=== PATIENT | female | born 1970 | race Caucasian/White ===

== ENCOUNTER 2018-04-13 07:10 | Day surgery (SDC) | payer BC ==
[2018-04-09 09:04] LABS: Absolute Lymphocytes (CBC) 1.2 K/uL (0.7-4.9); Absolute Monocytes 0.4 K/uL (0.1-1.3); Absolute Neutrophil 6.1 K/uL (1.8-8.0); Basophils % 0.5 % (0-1.3); Eosinophils % 1.4 % (0-4.4); Hematocrit 39.3 % (36.0-45.0); Lymphocytes % 15.5 % (15.3-44.8); MCH 33.6 pg (27.0-35.0); MCV 100.9 fL (80-100); MPV 8.1 fL (7.6-11.3); Monocytes % 4.8 % (3.3-12.3)
[2018-04-09 09:23] LABS: Potassium 3.3 mmol/L (3.5-5.1)
--- NOTE | 2018-04-09 10:41 | RAD REPORT ---
EXAM DESCRIPTION: RAD - Chest Pa And Lat (2 Views) - 04/09/2018 8:43 am CLINICAL HISTORY: Preop chest, pending left subclavian port removal COMPARISON: March 2017 portable chest TECHNIQUE: PA and lateral views of the chest were obtained. FINDINGS: The lungs are clear. Surgical clips are present right axilla. Decreased soft tissue volum e over the right chest presumed to be postsurgical change. Heart size is normal and central vasculatu re is within normal limits. No pleural effusion or pneumothorax seen. No acute bony finding noted. No aortic abnormality. IMPRESSION: No acute cardiopulmonary process.
--- NOTE | 2018-04-10 07:10 | EKG ---
Test Date: 2018-04-09 Test Time: 08:28:38 Mining Analyst: SHEY MEASUREMENT RESULTS: Intervals: Rate: 114 [place]: 150 QRSD: 82 QT: 324 QTc: 446 [facility]: P: 52 [place]: 150 QRS: 63 T: 31 INTERPRETIVE STATEMENTS: Sinus tachycardia Possible Left atrial enlargement Borderline ECG Compared to ECG 03/28/2017 11:07:17 No significant changes Electronically Signed On 04-10-18 07:07:26 PRIMING MACHINE OPERATOR by Inder Roberts
[2018-04-13] MEDS ORDERED: CEFAZOLIN/SWI 1gm 1 GM/10 ML SYR ONE (07:43)
[2018-04-13] MEDS ORDERED: Ringers Lactate 1,000 ML IV ONE (07:43)
[2018-04-13] MEDS ORDERED: FENTANYL CITR 100 MCG/2 ML ONE (08:31)
[2018-04-13] MEDS ORDERED: PROPOFOL 200 MG/20 ML VIAL IV ONE (08:31)
[2018-04-13] MEDS ORDERED: MIDAZOLAM HCL 2 MG/2 ML INJ ONE (08:31)
[2018-04-13] MEDS ORDERED: LIDOCAINE 2% MPF 5 ML VIAL ONE (08:31)
[2018-04-13] MEDS ORDERED: ONDANSETRON HCL 40 MG/20 ML VIAL ONE (08:32)
[2018-04-13] MEDS ORDERED: KETOROLAC 30 MG/ML INJ ONE (09:11)
--- NOTE | 2018-04-13 09:12 | P.BOP ---
Preoperative diagnosis: breast cancer Postoperative diagnosis: same Primary procedure: Removal of portacath Estimated blood loss: <10cc Specimen: intact portacath Anesthesia: General Complications: None Transferred to: Recovery Room Condition: Good
--- NOTE | 2018-04-13 21:07 | OP ---
Date of Procedure: 04/13/2018 Surgeon: Domenic eSxton MD Preoperative Diagnosis: Breast cancer. Postoperative Diagnosis: Breast cancer. Procedure: Removal of Port-A-Cath. Anesthesia: General plus local. Indications: This is the case of a 47-year-old patient, who just finished chemo, needed the Port-A-C ath removed. The benefits, alternatives, and risks of Port-A-Cath removal were fully explained, whic h include but are not limited to infection, bleeding, damage to adjacent structures, anesthesia compl ication, PE, DVTs, ID, and even . She also understands this may not relieve any symptoms. She might need more than one surgical intervention. She was advised once again the importance of followi ng up with the oncologist for the next several years as a followup for her breast cancer. She unders tood, signed the consent. Description Of Procedure: The patient was brought to the operating room, placed in the supine positi on. Anesthesia was done without complication. A time-out was called. Her chest was prepped and ta ped in a sterile fashion. Previous incision was opened. Incision was carried down to subcutaneous t issue. Port-A-Cath was identified, removed from the subcutaneous tissue, and then carefully pulled o ut without resistance. Pressure was applied at the insertion point. The Port-A-Cath came out intact with the catheter intact, was sent for identification. The area was irrigated. After applying pres sure for 15 minutes, we saw no bleeding. A 3-0 chromic was used to close the subcutaneous incision a nd also subcuticular closure with Steri-Strips on top. Sponge count and instrument counts were corre ct. The patient tolerated the procedure well. The patient was sent to recovery room in stable condition. KEYLA/IVON Voice ID: [id number] Report ID: [id number]
--- NOTE | 2018-04-13 21:13 | DS ---
Date of Discharge: 04/13/2018 Diagnosis: Breast cancer. Procedure: Removal of Port-A-Cath. Disposition: To home. Activity: As tolerated. No heavy lifting. Followup: Follow up in my office in 1 week. Call for appointment on [phone]. Keep area dry for 48 hours and then may shower. Keep Steri-Strips intact. Medications: See orders. KEYLA/IVON Voice ID: [id number] Report ID: [id number]
== END 2018-04-13 10:25 | disposition home or self-care (01) ==
LOC: OR 07:10
PROVIDERS: ATTEND Surgery
PROC: 0JPT0WZ Removal of Totally Implantable Vascular Access Device from Trunk Subcutaneous Tissue and Fascia, Open Approach (ICD-10-PCS; principal; 2018-04-13 08:30)
DX: Z45.2 Encounter for adjustment and management of vascular access device (principal); C50.911 Malignant neoplasm of unspecified site of right female breast; I10 Essential (primary) hypertension; F31.9 Bipolar disorder, unspecified; Z83.3 Family history of diabetes mellitus; Z82.49 Family history of ischemic heart disease and other diseases of the circulatory system
CPT/HCPCS: 36415; 71046; 80048; 85025; 88300; 93005; J0690; J2250; J2405; J2704; J3010

== ENCOUNTER 2018-11-08 02:03 | Emergency (ER) | payer BC ==
[2018-11-08] MEDS ORDERED: LORAZEPAM 1 MG TABLET ONE (02:29)
[2018-11-08] MEDS ORDERED: METOPROLOL TAR 25 MG TAB ONE (02:32)
--- NOTE | 2018-11-08 03:44 | EDPHYS ---
Physician Documentation [facility] Name: Aubrie Fink Age: 47 yrs Sex: Female : 1970 Arrival Date: 11/08/2018 Time: 02:08 Bed 14 Private MD: ED Physician Asif Sahu HPI: 11/08 03:11 This 47 yrs old Female presents to ER via EMS with complaints of Anxiety. ps1 03:11 patient was at work and drank 5 hour energy and 7 hour energy drink and took an ps1 albuterol and was BIBEMS for palpitations and anxiety. Patient didn't realize that the combination of caffeine supplements and albuterol would cause her HR to increase. Additionally was concerned about her BP. Did not take her Lisinopril today. STITCHING MACHINE OPERATOR: 02:15 LMP N/A - ea Historical: - Allergies: 02:15 "oxy"; ea - Home Meds: 02:15 Lisinopril Oral [Active]; Albuterol Oral [Active]; tamoxifen oral oral [Active]; ea - PMHx: 02:15 Asthma; Hypertension; breast cancer; ea - Immunization history:: Adult Immunizations up to date. - Social history:: Smoking status: Patient/guardian denies using tobacco. - Ebola Screening: : No symptoms or risks identified at this time. ROS: 03:11 Constitutional: Negative for fever, chills, and weight loss, Eyes: Negative for injury, ps1 pain, redness, and discharge, ENT: Negative for injury, pain, and discharge, Respiratory: Negative for shortness of breath, cough, wheezing, and pleuritic chest pain, Abdomen/GI: Negative for abdominal pain, nausea, vomiting, diarrhea, and constipation, Back: Negative for injury and pain, MS/Extremity: Negative for injury and deformity, Skin: Negative for injury, rash, and discoloration. 03:11 Cardiovascular: Positive for palpitations. 03:11 Psych: Positive for anxiety. Exam: 03:11 Constitutional: This is a well developed, well nourished patient who is awake, alert, ps1 and in no acute distress. Head/Face: Normocephalic, atraumatic. Eyes: Pupils equal round and reactive to light, extra-ocular motions intact. Lids and lashes normal. Conjunctiva and sclera are non-icteric and not injected. Chest/axilla: Normal chest wall appearance and motion. Nontender with no deformity. No lesions are appreciated. Respiratory: Lungs have equal breath sounds bilaterally, clear to auscultation and percussion. No rales, rhonchi or wheezes noted. No increased work of breathing, no retractions or nasal flaring. Abdomen/GI: Soft, non-tender, with normal bowel sounds. No distension or tympany. No guarding or rebound. No evidence of tenderness throughout. Back: No spinal tenderness. No costovertebral tenderness. Full range of motion. Skin: Warm, dry with normal turgor. Normal color with no rashes, no lesions, and no evidence of cellulitis. MS/ Extremity: Pulses equal, no cyanosis. Neurovascular intact. Full, normal range of motion. Neuro: Awake and alert, GCS 15, oriented to person, place, time, and situation. Cranial nerves II-XII grossly intact. Sensory grossly intact. 03:11 Cardiovascular: Rate: tachycardic, Rhythm: regular, Pulses: no pulse deficits are appreciated. 03:11 Psych: Behavior/mood is anxious, Affect is animated, Oriented to person, place, time, Patient has no thoughts/intents to harm self or others. Judgement / Insight is normal. Vital Signs: 02:15 BP 163 / 107; Pulse 124; Resp 18; Temp 98.4; Pulse Ox 100% ; Weight 73.94 kg; Height 5 ea ft. 3 in. (160.02 cm); 03:20 BP 148 / 54; Pulse 105; Resp 17; Pulse Ox 99% on R/A; rr5 03:46 BP 138 / 83; Pulse 95; Resp 17; Pulse Ox 99% on R/A; rr5 04:00 BP 131 / 85; Pulse 98; Resp 16; Temp 97.6; Pulse Ox 99% on R/A; rr5 02:15 Body Mass Index 28.87 (73.94 kg, 160.02 cm) ea MDM: 02:37 Patient medically screened. ps1 03:42 Data reviewed: vital signs, nurses notes, and as a result, I will discharge patient. ps1 Response to treatment: the patient's symptoms have resolved after treatment. Administered Medications: 02:15 Drug: Ativan 1 mg Route: PO; rr5 03:20 Follow up: Response: No adverse reaction rr5 02:17 Drug: Metoprolol 25 mg Route: PO; rr5 03:20 Follow up: Response: No adverse reaction rr5 Disposition: 11/08/18 03:43 Discharged to Home. Impression: Palpitations, Anxiety disorder due to known physiological condition. - Condition is Stable. - Discharge Instructions: Palpitations, Panic Attacks, Eenl-my-Jibr. - Medication Reconciliation Form, Thank You Letter, Antibiotic Education, Prescription Opioid Use form. - Follow up: Private Physician; When: As needed; Reason: Recheck today's complaints, Continuance of care, Re-evaluation by your physician. Follow up: Emergency Department; When: As needed; Reason: Worsening of condition. - Problem is new. - Symptoms are resolved. Signatures: Ashli Alvarado RN RN ea Asif Sahu MD MD ps1 Pawel Gore RN RN rr5 Corrections: (The following items were deleted from the chart) 04:04 03:43 11/08/2018 03:43 Discharged to Home. Impression: Palpitations; Anxiety disorder rr5 due to known physiological condition. Condition is Stable. Forms are Medication Reconciliation Form, Thank You Letter, Antibiotic Education, Prescription Opioid Use. Follow up: Private Physician; When: As needed; Reason: Recheck today's complaints, Continuance of care, Re-evaluation by your physician. Follow up: Emergency Department; When: As needed; Reason: Worsening of condition. Problem is new. Symptoms are resolved. ps1
--- NOTE | 2018-11-08 03:44 | ER ---
Nurse's Notes [facility] Name: Aubrie Fink Age: 47 yrs Sex: Female : 1970 Arrival Date: 11/08/2018 Time: 02:08 Bed 14 Private MD: Diagnosis: Palpitations;Anxiety disorder due to known physiological condition Presentation: 11/08 02:09 Presenting complaint: Patient states: Pt reports she drank a 5 hour energy and took ea albuterol last night, pt complaining of anxiousness. states "I feel really anxious and hyper". Transition of care: patient was not received from another setting of care. Onset of symptoms was November 08, 2018. Risk Assessment: Do you want to hurt yourself or someone else? Patient reports no desire to harm self or others. Initial Sepsis Screen: Does the patient meet any 2 criteria? HR > 90 bpm. Yes Does the patient have a suspected source of infection? No. Patient's initial sepsis screen is negative. Care prior to arrival: None. 02:09 Method Of Arrival: EMS: [facility] ea 02:09 Acuity: EDDIE 4 ea CARE TRANSITION MGR: 02:15 LMP N/A - ea Historical: - Allergies: 02:15 "oxy"; ea - Home Meds: 02:15 Lisinopril Oral [Active]; Albuterol Oral [Active]; tamoxifen oral oral [Active]; ea - PMHx: 02:15 Asthma; Hypertension; breast cancer; ea - Immunization history:: Adult Immunizations up to date. - Social history:: Smoking status: Patient/guardian denies using tobacco. - Ebola Screening: : No symptoms or risks identified at this time. Screenin:11 Abuse screen: Denies threats or abuse. Nutritional screening: No deficits noted. ea Tuberculosis screening: No symptoms or risk factors identified. Fall Risk None identified. Assessment: 02:17 General: Appears in no apparent distress. Behavior is anxious, restless. Pain: Denies ea pain. Neuro: Level of Consciousness is awake, alert, obeys commands, Oriented to person, place, time, situation. Cardiovascular: Patient's skin is warm and dry. Respiratory: Airway is patent Respiratory effort is even, unlabored, Respiratory pattern is regular, symmetrical. GI: No signs and/or symptoms were reported involving the gastrointestinal system. Derm: Skin is pink, warm \\T\\ dry. 03:10 Reassessment: Patient appears in no apparent distress at this time. Patient is alert, rr5 oriented x 3, equal unlabored respirations, skin warm/dry/pink. i feel much calmer now. Patient states feeling better. Patient states symptoms have improved. 04:00 Reassessment: Patient appears in no apparent distress at this time. Patient is alert, rr5 oriented x 3, equal unlabored respirations, skin warm/dry/pink. discharge instruction given and explained without complaints made. accompanied by family member. Patient denies pain at this time. Patient states feeling better. Patient states symptoms have improved. 04:00 General: Appears in no apparent distress. comfortable, Behavior is calm, cooperative, rr5 appropriate for age. Vital Signs: 02:15 BP 163 / 107; Pulse 124; Resp 18; Temp 98.4; Pulse Ox 100% ; Weight 73.94 kg; Height 5 ea ft. 3 in. (160.02 cm); 03:20 BP 148 / 54; Pulse 105; Resp 17; Pulse Ox 99% on R/A; rr5 03:46 BP 138 / 83; Pulse 95; Resp 17; Pulse Ox 99% on R/A; rr5 04:00 BP 131 / 85; Pulse 98; Resp 16; Temp 97.6; Pulse Ox 99% on R/A; rr5 02:15 Body Mass Index 28.87 (73.94 kg, 160.02 cm) ea ED Course: 02:08 Patient arrived in ED. ea 02:11 Triage completed. ea 02:12 Asif Sahu MD is Attending Physician. ps1 02:12 Patient has correct armband on for positive identification. Bed in low position. Call ea light in reach. 02:12 Arm band placed on right wrist. Patient placed in an exam room, on a stretcher, on ea pulse oximetry. 02:15 nurse monitoring on. Pulse ox on. NIBP on. rr5 03:31 Ashli Alvarado, BALBINA is Primary Nurse. ea 04:04 No provider procedures requiring assistance completed. Patient did not have IV access rr5 during this emergency room visit. Administered Medications: 02:15 Drug: Ativan 1 mg Route: PO; rr5 03:20 Follow up: Response: No adverse reaction rr5 02:17 Drug: Metoprolol 25 mg Route: PO; rr5 03:20 Follow up: Response: No adverse reaction rr5 Outcome: 03:43 Discharge ordered by . ps1 04:04 Discharged to home ambulatory, with family. rr5 04:04 Condition: stable 04:04 Discharge instructions given to patient, family, Instructed on discharge instructions, follow up and referral plans. Demonstrated understanding of instructions, follow-up care. 04:04 Patient left the ED. rr5 Signatures: Ashli Alvarado RN Asif Chakraborty ea, MD MD ps1 Pawel Gore RN RN rr5
== END 2018-11-08 04:04 | disposition home or self-care (01) ==
LOC: ER 02:03
DX: F06.4 Anxiety disorder due to known physiological condition (principal); I10 Essential (primary) hypertension; J45.909 Unspecified asthma, uncomplicated; Z85.3 Personal history of malignant neoplasm of breast; Z88.8 Allergy status to other drugs, medicaments and biological substances
CPT/HCPCS: 99284